=== PATIENT | female | born 1985 | race Caucasian/White ===

== ENCOUNTER 2019-08-17 05:20 | Day surgery (SDC) | payer OTHER ==
[~2019-08-17 05:20] MED LIST: AVIANE-28 TABL1 EACH PO; CABERGOLINE0.5 MG PO; MAXIMUM D3325 MCG PO
[2019-09-02] MEDS ORDERED: CABERGOLINE0.5 MG PO (08:10)
[2019-09-02] MEDS ORDERED: AVIANE-28 TABL1 EACH PO (08:11)
[2019-09-02] MEDS ORDERED: MAXIMUM D3325 MCG PO (08:11)
[2019-09-02] MEDS ORDERED: SUPER B-50 COM1 EACH PO (08:12)
[2019-09-02] MEDS ORDERED: VITAMIN D325 MC2 PO (08:14)
== END 2019-08-17 14:15 | disposition home or self-care (01) ==
LOC: CIR.AMB 05:20
PROVIDERS: ATTEND Otolaryngology Otology & Neurotology
DX: H90.11 Conductive hearing loss, unilateral, right ear, with unrestricted hearing on the contralateral side (principal)
CPT/HCPCS: 69714; L8614

== ENCOUNTER 2019-09-07 05:10 | Day surgery (SDC) | payer OTHER ==
[~2019-09-07 05:10] MED LIST changes: +SUPER B-50 COM1 EACH PO; +VITAMIN D325 MC2 PO
== END 2019-09-07 16:25 | disposition home or self-care (01) ==
LOC: CIR.AMB 05:10 → ADM 07:30 → CIR.AMB 07:30
PROVIDERS: ATTEND Otolaryngology Otology & Neurotology
DX: H90.12 Conductive hearing loss, unilateral, left ear, with unrestricted hearing on the contralateral side (principal)
CPT/HCPCS: 69714; L8614